=== PATIENT | female | born 1990 | race Caucasian/White ===

== ENCOUNTER 2017-02-21 17:52 | Emergency (ER) | payer SELFPAY ==
[2017-02-21] MEDS ORDERED: Oxymetazoline 0.05% NASAL SPR* 15 ML BTL BOTH NARES ONE (20:15)
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
[2017-02-21 20:45] VITALS: BP 120/70
== END 2017-02-21 20:47 | disposition home or self-care (01) ==
LOC: ED 17:52
DX: J45.909 Unspecified asthma, uncomplicated (principal); F41.9 Anxiety disorder, unspecified; F32.9 Major depressive disorder, single episode, unspecified; Z86.14 Personal history of Methicillin resistant Staphylococcus aureus infection; Z87.891 Personal history of nicotine dependence
CPT/HCPCS: 99282; A9270-GY

== ENCOUNTER 2017-06-02 12:15 | Emergency (ER) | payer SELFPAY ==
[2017-06-02 12:33] VITALS: BP 100/50
--- NOTE | 2017-06-02 12:43 | UC ---
Respiratory Complaint HPI - HPI Summary HPI Summary: Pt presents with dry cough, sinus congestion, and mild sore throat that started 2 days ago. She has been taking theraflu for her symptoms with no relief. Has not felt feverish. Denies fever, chills, SOB, chest pain, abdominal pain, n/v/d/ c, body aches, or sick contacts. - History of Current Complaint Chief Complaint: UCRespiratory Stated Complaint: FLU SYMPTOMS Time Seen by Provider: 06/02/17 12:36 Hx Obtained From: Patient Hx Last Menstrual Period: 05/31/2017 Onset/Duration: Sudden Onset Severity Initially: Moderate Severity Currently: Moderate Pain Intensity: 5 Pain Scale Used: 0-10 Numeric Character: Cough: Nonproductive - Allergies/Home Medications Allergies/Adverse Reactions: Allergies Allergy/AdvReac Type Severity Reaction Status Date / Time Environmental Allergies Allergy Congestion Uncoded 06/02/17 12:26 Home Medications: Home Medications Diphenhydra/Phenyleph/Acetamin [Theraflu Expressmax Cold Nt Lq] 245.5 ml PO QPM PRN 06/02/17 [History Confirmed 06/02/17] PMH/Surg Hx/FS Hx/Imm Hx Previously Healthy: Yes Other History Of: Negative For: HIV, Hepatitis B, Hepatitis C - Surgical History Surgical History: Yes Surgery Procedure, Year, and Place: Tonsillectomy. Corrective Surgery Bilat Eye Muscles - Family History Known Family History: Positive: Hypertension - Social History Occupation: Employed Full-time Lives: With Family Alcohol Use: Occasionally Substance Use Type: None Smoking Status (MU): Former Smoker Type: Cigarettes Amount Used/How Often: 5-6 CIG/DAY Length of Time of Smoking/Using Tobacco: 1/2 ppd Have You Smoked in the Last Year: Yes Household Exposure Type: Cigarettes Review of Systems Constitutional: Negative Skin: Negative Eyes: Negative ENT: Sinus Congestion Respiratory: Cough Cardiovascular: Negative Gastrointestinal: Negative Neurological: Negative Psychological: Negative All Other Systems Reviewed And Are Negative: Yes Physical Exam Triage Information Reviewed: Yes Appearance: Well-Appearing, No Pain Distress, Well-Nourished Vital Signs: Initial Vital Signs Temp 99.7 F 06/02/17 12:26 Pulse 88 06/02/17 12:26 Resp 18 06/02/17 12:26 BP 100/50 06/02/17 12:26 Pulse Ox 98 06/02/17 12:26 Vital Signs Reviewed: Yes Eyes: Positive: Conjunctiva Clear. Negative: Conjunctiva Inflamed, Discharge ENT: Positive: Hearing grossly normal, Pharynx normal, Nasal congestion, TMs normal, Uvula midline. Negative: Pharyngeal erythema, Nasal drainage, TM bulging, TM dull, TM red, Tonsillar swelling, Tonsillar exudate, Hoarse voice, Sinus tenderness Neck: Positive: Supple, Nontender, No Lymphadenopathy Respiratory: Positive: Chest non-tender, Lungs clear, Normal breath sounds, No respiratory distress, No accessory muscle use Cardiovascular: Positive: RRR, No Murmur, Pulses Normal Neurological: Positive: Alert Psychological: Positive: Age Appropriate Behavior Skin: Negative: rashes UC Diagnostic Evaluation - Laboratory O2 Sat by Pulse Oximetry: 98 Respiratory Course/Dx - Course Course Of Treatment: POC flu negative. Suspect bronchitis. Rx for tessalon and albuterol inhaler. - Differential Dx/Diagnosis Provider Diagnoses: Bronchitis Discharge - Discharge Plan Condition: Stable Disposition: HOME Prescriptions: Albuterol HFA INHALER* [Ventolin HFA Inhaler*] 1 - 2 puff INH Q6H PRN #1 mdi PRN Reason: Cough Benzonatate CAP* [Tessalon 100 MG CAP*] 100 mg PO TID #21 cap Patient Education Materials: Acute Bronchitis (ED) Forms: *Work Release Referrals: No Primary Care Phys,NOPCP [Primary Care Provider] - Additional Instructions: If you develop a fever, shortness of breath, chest pain, new or worsening symptoms - please call your PCP or go to the ED.
== END 2017-06-02 13:38 | disposition home or self-care (01) ==
LOC: UCEAST 12:15
DX: J40 Bronchitis, not specified as acute or chronic (principal); Z87.891 Personal history of nicotine dependence
CPT/HCPCS: 87502; 99212; G0463

== ENCOUNTER 2017-08-09 20:33 | Emergency (ER) | payer SELFPAY ==
--- NOTE | 2017-08-09 21:54 | RAD ---
HISTORY: Cough COMPARISONS: January 07, 2016 VIEWS: 4: Frontal dual-energy and lateral views of the chest. FINDINGS: CARDIOMEDIASTINAL SILHOUETTE: The cardiomediastinal silhouette is normal. KRISHNA: The krishna are normal. PLEURA: The costophrenic angles are sharp. No pleural abnormalities are noted. LUNG PARENCHYMA: The lungs are clear. ABDOMEN: The upper abdomen is clear. There is no subphrenic gas. BONES AND SOFT TISSUES: No bone or soft tissue abnormalities are noted. OTHER: None. IMPRESSION: NO ACTIVE CARDIOPULMONARY DISEASE.
[2017-08-09] MEDS ORDERED: guaiFENesin/CODIEN 100MG-10MG* 5 ML UDC PO ONE (21:58)
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
[2017-08-09] MEDS ORDERED: predniSONE TAB* 20 MG PO ONE (21:59)
[2017-08-09] MEDS ORDERED: A lbuterol Hfa (PREPAK) 1 MDI - ED TAKE HOME DISPENSING ONLY INHH ONE (21:59)
[2017-08-09 23:52] VITALS: BP 126/67
== END 2017-08-09 22:45 | disposition home or self-care (01) ==
LOC: ED 20:33
DX: J06.9 Acute upper respiratory infection, unspecified (principal); R05 Cough; J02.9 Acute pharyngitis, unspecified; Z87.891 Personal history of nicotine dependence
CPT/HCPCS: 71046; 99281; A9270-GY; J7512

== ENCOUNTER 2017-08-20 03:31 | Emergency (ER) | payer SELFPAY ==
[2017-08-20] MEDS ORDERED: traMADol TAB* 50 MG PO ONE (04:18)
[2017-08-20 05:20] VITALS: BP 122/81
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
== END 2017-08-20 05:22 | disposition home or self-care (01) ==
LOC: ED 03:31
DX: S09.90XA Unspecified injury of head, initial encounter (principal); V43.52XA Car driver injured in collision with other type car in traffic accident, initial encounter; Y92.410 Unspecified street and highway as the place of occurrence of the external cause; Z87.891 Personal history of nicotine dependence
CPT/HCPCS: 70450; 99282; A9270-GY

== ENCOUNTER 2017-09-20 01:20 | Emergency (ER) | payer SELFPAY ==
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
[2017-09-20 02:02] VITALS: BP 00/0
== END 2017-09-20 02:00 | disposition home or self-care (01) ==
LOC: ED 01:20
DX: J32.9 Chronic sinusitis, unspecified (principal); S70.362A Insect bite (nonvenomous), left thigh, initial encounter; W57.XXXA Bitten or stung by nonvenomous insect and other nonvenomous arthropods, initial encounter; Y92.9 Unspecified place or not applicable; F17.210 Nicotine dependence, cigarettes, uncomplicated
CPT/HCPCS: 99282

== ENCOUNTER → 2017-12-13 17:54 | Emergency (ER) | payer SELFPAY ==
[2017-12-13 18:00] VITALS: BP 119/65
== END | disposition left against medical advice (07) ==
LOC: ED 17:54
DX: R51 Headache (principal); Z53.21 Procedure and treatment not carried out due to patient leaving prior to being seen by health care provider